=== PATIENT | male | born 1960 | race Two or more races ===

== ENCOUNTER 2019-09-27 08:56 | Day surgery (SDC) | payer OTHER ==
[~2019-09-27 08:56] MED LIST: DOXAZOSIN MESYLA2 MG PO; FENOFIBRATE145 MG PO; HYDROCHLOROTH12.5 MG PO; IRBESARTAN300 MG PO; LIPITOR20 MG PO; LIPOCHOL PLUS0.5 MG PO; METFORMIN HCL500 M3 PO; NORVASC2.5 MG PO; PREDNISOLONE ACE5 M1 OTIC
== END 2019-09-27 18:30 | disposition home or self-care (01) ==
LOC: CIR.AMB 08:56 → ADM 11:00 → CIR.AMB 11:00
PROVIDERS: ATTEND Colon & Rectal Surgery
DX: K62.0 Anal polyp (principal); K64.4 Residual hemorrhoidal skin tags; K64.1 Second degree hemorrhoids
CPT/HCPCS: 0184T; 46260; 64430